=== PATIENT | male | born 1980 | race Caucasian/White ===

== ENCOUNTER 2022-06-25 07:43 | Outpatient (CLI) | payer OTHER, SELFPAY ==
--- NOTE | 2022-07-20 19:36 | WPDSLEEPSTUD ---
Sleep Study Date of Study: 06/25/22 Ordering Provider: RYAN Keller Interpreting Physician: Sharlene Atwood DO Sleep Study Type: Polysomnogram Height: 1.75 m Weight: 183.251 kg Body Mass Index: 59.6 Neck Circumference (inches): 22 [place]: 12 Reason for Sleep Study Previously diagnosed ARANZA but not on therapy. Sleep History The patient is a 42-year-old male with anxiety, asthma, anemia, COPD, congestive heart failure with reduced ejection fraction, hypertension, irritable bowel syndrome, prediabetes, kidney disease, history of stroke and previously diagnosed sleep apnea that had a sleep study ordered by the pulmonary group. the patient occasionally awakens from sleep short of breath. He occasionally awakens at night with heartburn, belching or cough. He frequently snores loud enough others complain. He constantly has trouble sleeping when he has a cold. He occasionally wakes up gasping for air throughout the night. He frequently has breathing problems at night observed by himself or others. He occasionally sweats excessively at night. He occasionally has heart palpitations or irregular heartbeats during the night. He occasionally falls asleep during the day but rarely falls asleep while driving. He denies sleep paralysis, cataplexy and hypnagogic/ hypnopompic hallucinations. He occasionally has trouble in school or work due to sleepiness. he denies feeling afraid of going to sleep. He occasionally has nightmares. He occasionally remembers his dreams. He occasionally has thoughts racing through his mind. He rarely feels sad or depressed. He occasionally has anxiety. He rarely has muscular tension. He rarely notices parts of his body jerk. He denies kicking during the night. He occasionally has crawling and aching feelings in his legs and occasionally has leg pain during the night. He denies grinding his teeth during sleep and awakening with morning jaw pain. He is rarely bothered by pain during the day and rarely awakened by pain during the night. He occasionally wakes up feeling stiff in the morning. He occasionally wakes up with sore achy muscles. He occasionally wakes up with pain in the neck, spine and other joints. He goes to bed between 1:23 a.m. on both weekdays and weekends. He takes him 15-60 minutes to fall asleep. He wakes up 2-3 times throughout the night for unknown reason. He can take in 5-20 minutes to fall back asleep. He wakes up between 7-10 a.m. on both weekdays and weekends. He typically gets 4-6 hours of sleep per night. He will stay in bed for 10-20 minutes after waking up in the morning. He currently lives with a roommate. He does not consume any caffeinated beverages within 2 hours of bedtime. He does not engage in physical exercise before bedtime. He will read before falling asleep. He denies watching television before falling asleep. He will take naps in the afternoon or the evening and they are refreshing. He drinks 2-3 cups of caffeinated beverage per day. He quit smoking cigarettes 6 months ago. He denies consuming alcohol. He does use marijuana. [facility] Past Medical History Medical History Allergies Anemia Anxiety Asthma Cancer COPD (chronic obstructive pulmonary disease) Headache Heart failure with reduced ejection fraction History of blood clots Hypertension Irritable bowel Kidney disease Obesity Obstructive sleep apnea Prediabetes Stroke Family History Family History Father Hypertension Mother Hypertension Depression Grandparent Hypertension Depression Unknown Depression Social History Social History Smoking status: Former smoker Medications Home Medications Medication Instructions Recorded Confirmed Type amlodipine 10 mg tablet 10 mg PO DAILY 06/16/22
[2022-07-20 19:46] VITALS: BMI 59.6
--- NOTE | 2022-10-01 14:53 | SLEEP ---
pt returned for bilevel titration [id number]
== END 2022-06-26 00:46 | disposition left against medical advice (07) ==
PROVIDERS: Visit Provider Physician Assistant
DX: G47.33 Obstructive sleep apnea (adult) (pediatric) (principal)
CPT/HCPCS: 95810

== ENCOUNTER 2022-08-27 07:25 | Outpatient (CLI) | payer OTHER, SELFPAY ==
--- NOTE | 2022-09-16 18:46 | WPDSLEEPSTUD ---
Sleep Study Date of Study: 08/27/22 Ordering Provider: RYAN Keller Interpreting Physician: Sharlene Atwood DO Sleep Study Type: BiPAP Titration Height: 1.75 m Weight: 183.251 kg Body Mass Index: 59.6 Neck Circumference (inches): 22 [place]: 9 Reason for Sleep Study Previously diagnosed ARANZA but not on PAP therapy. He was previously on BPAP. He had a polysomnogram on 06/25/2022 that showed an AHI of 84. Sleep History The patient is a 42-year-old male with anxiety, asthma, anemia, COPD, congestive heart failure with reduced ejection fraction, hypertension, irritable bowel syndrome, prediabetes, kidney disease, history of stroke and previously diagnosed sleep apnea that had a sleep study ordered by the pulmonary group. the patient occasionally awakens from sleep short of breath.? He occasionally awakens at night with heartburn, belching or cough.? He frequently snores loud enough others complain.? He constantly has trouble sleeping when he has a cold.? He occasionally wakes up gasping for air throughout the night.? He frequently has breathing problems at night observed by himself or others.? He occasionally sweats excessively at night.? He occasionally has heart palpitations or irregular heartbeats during the night.? He occasionally falls asleep during the day but rarely falls asleep while driving.? He denies sleep paralysis, cataplexy and hypnagogic/ hypnopompic hallucinations.? He occasionally has trouble in school or work due to sleepiness. he denies feeling afraid of going to sleep.? He occasionally has nightmares.? He occasionally remembers his dreams.? He occasionally has thoughts racing through his mind.? He rarely feels sad or depressed.? He occasionally has anxiety.? He rarely has muscular tension.? He rarely notices parts of his body jerk.? He denies kicking during the night.? He occasionally has crawling and aching feelings in his legs and occasionally has leg pain during the night.? He denies grinding his teeth during sleep and awakening with morning jaw pain.? He is rarely bothered by pain during the day and rarely awakened by pain during the night.? He occasionally wakes up feeling stiff in the morning.? He occasionally wakes up with sore achy muscles.? He occasionally wakes up with pain in the neck, spine and other joints.? He goes to bed between 1:23 a.m. on both weekdays and weekends.? He takes him 15-60 minutes to fall asleep.? He wakes up 2-3 times throughout the night for unknown reason.? He can take in 5-20 minutes to fall back asleep.? He wakes up between 7-10 a.m. on both weekdays and weekends.? He typically gets 4-6 hours of sleep per night.? He will stay in bed for 10-20 minutes after waking up in the morning.? He currently lives with a roommate.? He does not consume any caffeinated beverages within 2 hours of bedtime.? He does not engage in physical exercise before bedtime.? He will read before falling asleep.? He denies watching television before falling asleep.? He will take naps in the afternoon or the evening and they are refreshing.? He drinks 2-3 cups of caffeinated beverage per day.? He quit smoking cigarettes 6 months ago.? He denies consuming alcohol.? He does use marijuana. [facility] Past Medical History Medical History Allergies Anemia Anxiety Asthma Cancer COPD (chronic obstructive pulmonary disease) Headache Heart failure with reduced ejection fraction History of blood clots Hypertension Irritable bowel Kidney disease Obesity Obstructive sleep apnea Prediabetes Stroke Family History Family History Father Hypertension Mother Hypertension Depression Grandparent Hypertension Depression Unknown Depression Social History Social History Smoking status: Former smoker Medications Home Medications Medication Ins
[2022-09-16 18:48] VITALS: BMI 59.6
== END 2022-08-28 05:41 | disposition home or self-care (01) ==
PROVIDERS: Visit Provider Physician Assistant
DX: G47.33 Obstructive sleep apnea (adult) (pediatric) (principal)
CPT/HCPCS: 95811

== ENCOUNTER 2022-12-02 12:30 | Outpatient (CLI) | payer OTHER, SELFPAY ==
--- NOTE | 2022-12-03 14:23 | WPDPFTINT ---
PFT Procedure Performed PFT Procedure Performed Spirometry with Pre/Post Bronchodilator Plethysmography (Lung Vol) Diffusing Cap (DLCO) Flow Vol Loop PFT Interpretation Lung volumes were measured with the body plethysmography method. The elevated FRC and RV could be due to air trapping. The remaining lung volumes are unremarkable. Spirometry showed diminished expiratory flow rates and a borderline diminished FEV1 to FVC ratio 71 %, possibly indicating obstructive airway disease. Following administration of a bronchodilator there was no significant increase in expiratory flow rates. Flow volume loop is unremarkable. Lung diffusion capacity is within the normal range at 102% predicted. Impression: Probable moderate obstructive airway disease with evidence of air trapping and no response to bronchodilators on this testing.
--- NOTE | 2022-12-03 14:27 | WPDSIXMINUTE ---
Six Minute Walk Procedure Procedure Performed Pulmonary Stress Test (6 min walk) Six Minute Walk Six Minute Walk: This 6 minute walk test was carried out with the patient breathing ambient air. The pre walk oxyhemoglobin saturation was 92%. The patient walked 335 m with no stops during testing. During the walk the oxyhemoglobin saturation remained in the range of 93% to 95%. The perceived dyspnea on the Ana scale was 1 at baseline and increased to 5 at the end of testing. Impression: No evidence of oxyhemoglobin desaturation on this testing.
== END 2022-12-02 12:31 | disposition home or self-care (01) ==
PROVIDERS: PCP Pediatrics; Visit Provider Physician Assistant
DX: R06.09 Other forms of dyspnea (principal)
CPT/HCPCS: 94060; 94618; 94726; 94729

== ENCOUNTER 2023-06-18 14:24 | Outpatient (CLI) | payer MEDICARE, MEDICAID, SELFPAY ==
--- NOTE | 2023-06-18 14:42 | ECHO_ITS ---
Patient Info Name: Sonny Oates Age: 43 years : 1980 Gender: Male Ht: 71 in Wt: 330 lbs BSA: 2.81 m2 HR: 78 bpm BP: 145 / 85 mmHg Heart Rhythm: Indeterminant Technical Quality: Fair Exam Date: 06/18/2023 2:54 PM Exam Location: [facility] Patient Status: Outpatient Admit Date: 06/18/2023 Staff Ordering Physician: Usman Spencer DO Prosthetist: Ravinder Teague RDCS Attending Provider: Usman Spencer DO Referring Physician: Tj GUZMAN; Exam Type: CA echo dop color flow w con Study Info Indications - CHF Complete two-dimensional, color flow and Doppler transthoracic echocardiogram is performed with contrast to opacify the left ventricle and to improve the deliniation of the left ventricle endocardial borders. Summary 1. Left ventricular chamber dimension is severely enlarged. 2. Definity contrast administered improved wall motion interpretation. 3. Left ventricular systolic function is severely reduced, estimated at 30-35%. 4. There is moderate concentric increased left ventricular wall thickness. 5. The left ventricular diastolic function is indeterminate. 6. Tissue doppler E/e' was not determined. 7. Left atrial chamber dimension is moderately enlarged. 8. Right atrial chamber dimension is mildly enlarged. 9. There is mild aortic valve sclerosis. 10. No pulmonary hypertension, estimated pulmonary arterial systolic pressure is 7 mmHg. Left Ventricle Definity contrast administered improved wall motion interpretation. Tissue doppler E/e' was not determined. Left ventricular chamber dimension is severely enlarged. Left ventricular systolic function is severely reduced, estimated at 30-35%. There is moderate concentric increased left ventricular wall thickness. The left ventricular diastolic function is indeterminate. Right Ventricle Right ventricular systolic function is normal and with normal TAPSE 2.5 cm. Right ventricular chamber dimension is normal. Left Atria Left atrial chamber dimension is moderately enlarged. Right Atria Right atrial chamber dimension is mildly enlarged. Aortic Valve The aortic valve is trileaflet. There is mild aortic valve sclerosis. There is no aortic valve stenosis. There is no aortic valve regurgitation. Pulmonic Valve There is no pulmonic regurgitation. Mitral Valve There is no mitral valve stenosis. There is no mitral valve regurgitation. Tricuspid Valve There is no tricuspid valve regurgitation. No pulmonary hypertension, estimated pulmonary arterial systolic pressure is 7 mmHg. Pericardium/Pleural There is no pericardial effusion. Inferior Vena Cava Normal inferior vena cava with >50% collapse upon inspiration consistent with normal right atrial pressure, 5 mmHg. Aorta The aortic root size at the sinus of Valsalva is normal. Left Ventricular Outflow Tract Name Value Normal LVOT 2D LVOT Diameter 2.18 cm LVOT Doppler LVOT Peak Gradient 3 mmHg LVOT Mean Gradient 2 mmHg LVOT VTI 17.18 cm LVOT VTI/AV VTI Ratio 0.78 LVOT Stroke Volume 64.16 ml LVOT CO 5.64 l/min LVOT CI 2.01 L/min/m2 Pulmonic Valve Name Value Normal PV Doppler PV Peak Gradient 2 mmHg Mitral Valve Name Value Normal MV Doppler MV Decel [place] 384.27 cm/s2 MV PHT 0 s MV Area (PHT) 2.83 cm2 4.00-5.00 MV Diastolic Function MV E Peak Velocity 103.17 cm/s MV A Peak Velocity 3.72 cm/s MV E/A 27.72 MV Decel Time 0 s MV Annular TDI MV E/e' (Lateral) 18.11 <=8.00 Tricuspid Valve Name Value Normal TV Regurgitation Doppler TR Peak Velocity 69.05 cm/s TR Peak Gradient 2 mmHg Estimated PAP/RSVP RA Pressure 5 mmHg <=5 PA Systolic Pressure 7 mmHg <36 RV Systolic Pressure 7 mmHg <36 Aorta Name Value Normal Ascending Aorta Ao Root Diameter (MM) 3.90 cm Ao Root Diam Index (MM) 1.39 cm/m2 Aortic Valve Name Value Normal AV Doppler AV Peak Velocity 126.68 cm/s AV Peak Gradient 6 mmHg AV Mean Gradient 4 mmHg AV VTI 22.13 cm AV Area (Cont Eq VTI) 2.90 cm2 >=3.00 AV Area (Cont Eq Bogdan) 2.41 cm2 AV Regurgitation 2D LVOT Area 3.74 cm2 Ventricles Name Value Normal LV Dimensions 2D/MM IVS Diastolic Thickness (2D) 1.45 cm 0.60-1.00 LVID Diastole (2D) 6.39 cm 4.20-5.80 LVIW Diastolic Thickness (2D) 1.76 cm 0.60-1.00 LVID Systole (2D) 4.97 cm 2.50-4.00 LVOT Diameter 2.18 cm LV Mass (2D Cubed) 519.92 g 88.00-224.00 LV Mass Index (2D Cubed) 0.02 g/cm2 0.00-0.01 Relative Wall Thickness (2D) 0.55 LV Fractional Shortening/Ejection Fraction 2D/MM LV Fractional Shortening (2D) 22 % 25-43 LV EF (2D Teicholz) 44 % 52-72 LV Diastolic Volume (4C MOD) 265.59 ml LV EF (4C MOD) 34 % LV Diastolic Volume (2C MOD) 303.99 ml LV EF (2C MOD) 42 % LV Diastolic Volume (BP MOD) 292.35 ml 62.00-150.00 LV Diastolic Volume Index (BP MOD) 0.10 l/m2 0.03-0.07 LV Systolic Volume (BP MOD) 185.05 ml 21.00-61.00 LV Systolic Volume Index (BP MOD) 0.07 l/m2 0.01-0.03 LV EF (BP MOD) 37 % 52-72 LV Diastolic Length (4C) 10.25 cm LV Systolic Length (4C) 9.00 cm LV Stroke Volume (4C MOD) 89.30 ml Atria Name Value Normal LA Dimensions LA Dimension (MM) 4.07 cm 3.00-4.10 LA Volume (4C A-L) 82.33 ml LA Volume (BP A-L) 92.10 ml RA Dimensions RA Area (4C) 18.68 cm2 <=18.00 Report Signatures
[2023-06-18] MEDS: PERFLUTREN LIPID MICROSPHERES 1.5 ML VIAL DILUTED TO 10 ML TOTAL VOLUME IV PUSH (15:15)
== END 2023-06-18 14:25 | disposition home or self-care (01) ==
LOC: ANHCARD 14:26
PROVIDERS: Visit Provider Internal Medicine Cardiovascular Disease
DX: I50.20 Unspecified systolic (congestive) heart failure (principal)
CPT/HCPCS: C8929; Q9957